=== PATIENT | male | born 1970 | race Caucasian/White ===

== ENCOUNTER → 2020-01-23 | Outpatient (CLI) | payer BC ==
[2020-01-23 12:55] LABS: HCT 43.6 % (39.0-53.0); HGB 14.7 gm/dL (13.0-17.5); MCH 33.8 pg (25.0-35.0); MCHC 33.6 g/dL (31.0-37.0); MCV 100.4 fL (80.0-100.0); Mean Platelet Volume 7.9; Platelet Count 319 k/uL (150-450); RBC 4.34 m/uL (4.30-5.90); RDW 13.2 % (11.5-15.5); WBC 7.9 k/uL (3.8-10.6)
[2020-01-23 13:26] LABS: Erythrocyte Sedimentation Rate 11 mm/hr (0-15)
[2020-01-23 19:55] LABS: Streptolysin O Ab(ASO) 72 IU/mL (0-200)
[2020-01-23 20:19] LABS: C Reactive Protein 0.5 mg/dL (0.0-0.8); Rheumatoid Factor, Qnt 4 IU/mL (0-15)
[2020-01-24 11:03] LABS: HLA B27 POSITIVE
== END | disposition home or self-care (01) ==
LOC: LABWHC1 10:55
PROVIDERS: ATTEND Orthopaedic Surgery
DX: M25.571 Pain in right ankle and joints of right foot (principal); S93.401D Sprain of unspecified ligament of right ankle, subsequent encounter; F17.210 Nicotine dependence, cigarettes, uncomplicated
CPT/HCPCS: 36415; 84443; 85027; 85652; 86038; 86060; 86140; 86431; 86618; 86812

== ENCOUNTER → 2023-08-06 | Outpatient (CLI) | payer BC ==
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
== END | disposition home or self-care (01) ==
LOC: RADXRMAIN 16:52
PROVIDERS: ATTEND Nurse Practitioner Family
DX: M25.511 Pain in right shoulder (principal); M25.512 Pain in left shoulder

== ENCOUNTER → 2023-08-06 | Outpatient (CLI) | payer BC ==
[2023-08-06 16:59] LABS: Basophils % (A) 0 %; Eosinophils # (A) 0.2 k/uL (0-0.7); Eosinophils % (A) 2 %; HCT 46.3 % (39.0-53.0); HGB 15.7 gm/dL (13.0-17.5); Lymphocytes # (A) 2.1 k/uL (1.0-4.8); Lymphocytes % (A) 26 %; MCH 35.6 pg (25.0-35.0); MCHC 33.9 g/dL (31.0-37.0); MCV 105.2 fL (80.0-100.0); Macrocytosis Slight; Mean Platelet Volume 7.7; Monocytes # (A) 0.5 k/uL (0-1.0); Monocytes % (A) 7 %; Neutrophils # (A) 5.2 k/uL (1.3-7.7); Neutrophils % (A) 64 %; Platelet Count 264 k/uL (150-450); RDW 13.1 % (11.5-15.5); WBC 8.1 k/uL (3.8-10.6)
[2023-08-06 17:05] LABS: ALT 38 U/L (4-49); AST 36 U/L (17-59); African American GFR (CKD) >90 (>60 ml/min/1.73 sqM); Albumin 4.4 g/dL (3.5-5.0); Albumin/Globulin Ratio 1.4; Alkaline Phosphatase 69 U/L (38-126); Anion Gap 8 mmol/L; Blood Urea Nitrogen 13 mg/dL (9-20); Calcium 9.9 mg/dL (8.4-10.2); Carbon Dioxide 26 mmol/L (22-30); Chloride 105 mmol/L (98-107); Globulin 3.1 g/dL; Glucose 92 mg/dL (74-99); Non-African American GFR(CKD) 88 (>60 ml/min/1.73 sqM); Potassium 4.7 mmol/L (3.5-5.1); Sodium 139 mmol/L (137-145); Total Bilirubin 0.7 mg/dL (0.2-1.3); Total Protein 7.5 g/dL (6.3-8.2)
[2023-08-06 17:22] LABS: T4, Free (Free Thyroxine) 0.75 ng/dL (0.78-2.19)
[2023-08-06 17:30] LABS: Troponin I <0.012 ng/mL (0.000-0.034)
[2023-08-06 17:47] LABS: Creatine Kinase MB 0.8 ng/mL (0.0-3.4)
== END | disposition home or self-care (01) ==
LOC: LABWHC1 16:05
PROVIDERS: ATTEND Nurse Practitioner Family
DX: D72.829 Elevated white blood cell count, unspecified (principal); R55 Syncope and collapse
CPT/HCPCS: 36415; 80053; 82553; 83036; 84439; 84443; 84484; 85025

== ENCOUNTER → 2023-08-20 | Outpatient (CLI) | payer BC ==
--- NOTE | 2023-08-20 11:35 | CA ---
Exercise Stress Test Report Name: Abhishek Rhodes Exam Date: 08/20/2023 08:59 Exam Location: [place] [facility] Ht (in): 68 Wt (lb): 170 BSA: 1.91 Ordering Phys: Mariusz Saldivar DO Referring Phys: Falguni Torres Technologist: Kulwinder Colmenares Age: 53 Gender: M : 1970 Procedure CPT: Indications: R55 SYNCOPE AND COLLAPSE ICD-10 Codes: Patient History: Medications: LISINOPRIL, ALPURINOL Meds past 24 hrs: Pretest Chest Pain: STRESS TEST Frantz Protocol Exercise Duration (min:sec): 12:[address] Depressions (mm): Angina Score: Garcia Score: Resting HR (bpm): 88 Peak HR (bpm): 147 Resting BP (mmHg): 130 / 99 Peak BP (mmHg): 207 / 99 MPHR: 169 Target HR: 144 % MPHR: 87 METS: 12.1 Total Dose: Peak Dose: Atropine: Double Product: 98732 BP Response: Stress Termination: Reached target heart rate Stress Symptoms: No chest pain or symptoms Stress Summary: ECG ANALYSIS Resting ECG: Normal sinus rhythm normal axis normal intervals Stress ECG: Patient exercised on Frantz protocol for 12 minutes achieving 85% of maximal heart rate without chest pain or diagnostic ST segment depression CONCLUSIONS Excellent exercise tolerance Negative stress test by EKG criteria Dr. Bakari Gay MD (Electronically Signed) Final Date: 20 August 2023 11:34
== END | disposition home or self-care (01) ==
LOC: RADNMMAIN 08:36
PROVIDERS: ATTEND Family Medicine
DX: R55 Syncope and collapse (principal)
CPT/HCPCS: 93017

== ENCOUNTER → 2023-08-21 | Outpatient (CLI) | payer BC ==
--- NOTE | 2023-08-24 09:26 | CT ---
EXAMINATION TYPE: CT soft tissue neck wo con DATE OF EXAM: 08/21/2023 HISTORY: Thyroid nodule left side. COMPARISON: None CT DLP: 334.8 mGycm. Automated Exposure Control for Dose Reduction was Utilized. TECHNIQUE: CT scan of the neck is performed without and with IV Contrast, , coronal and sagittal ref ormatted images are reviewed. FINDINGS: Lack of contrast severely limits the exam for assessment of adenopathy. Airway: No gross abnormality seen. Parotid/submandibular glands: No gross abnormality seen. Carotid/Vascular Structures: No significant atherosclerotic changes noted. Osseous Structures: Hypertrophic and degenerative changes of the spine severe changes C5-C6. There is posterior spondylosis and retrolisthesis. Other: Emphysematous changes involving the lung apices with biapical subpleural scarring or thickenin g. Subpleural nodularity has a benign appearance. Near the angle of the mandible on axial image 47 there is a 2 cm low-density structure. Recommend ult rasound follow-up given the lack of IV contrast. Measures approximately 18 Hounsfield units. There ar e bilateral scattered soft tissue nodules in the compartments of the neck with the 1 cm borderline ar ea of adenopathy in the right carotid space axial image 38. Additional nodules are seen with referenc e to 1 cm nodule in the right submental space axial image 39. There is asymmetric prominence of the posterior right base of the tongue and oral mucosa for which di rect visualization is recommended to exclude mucosal lesion. IMPRESSION: 1. Exam is significantly limited due to lack of contrast. 2. Asymmetric mucosal thickening along the right oropharynx and base of the tongue for which ENT cons ultation recommended. 3. Scattered areas of borderline adenopathy throughout the compartments of the neck. Additionally, th ere is a 2 cm cystic lesion in the left neck near the angle the mandible for which ultrasound is bob mmended.
== END | disposition home or self-care (01) ==
LOC: RADCTMAIN 15:29
PROVIDERS: ATTEND Family Medicine
DX: E04.1 Nontoxic single thyroid nodule (principal); K13.29 Other disturbances of oral epithelium, including tongue; R59.0 Localized enlarged lymph nodes
CPT/HCPCS: 70490

== ENCOUNTER → 2023-09-02 | Outpatient (CLI) | payer BC ==
--- NOTE | 2023-09-02 18:48 | US ---
EXAMINATION TYPE: US thyroid st tissue head/neck DATE OF EXAM: 09/02/2023 COMPARISON: CT 08/21/2023- cystic lesion left neck near the mandible. 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 Technique: Ultrasound imaging of the right submandibular region. Greyscale and color Doppler imaging was performed. FINDINGS: Two solid, hypoechoic areas with calcifications seen right submandibular area. #1 area measures: 1.3 x 1.1 x 1.0 cm. #2 area measures: 2.4 x 1.8 x 1.2 cm. Anechoic area with solid border seen left submandibular area: 3.2 x 3.2 x 1.8 cm. IMPRESSION: Indeterminate right neck lymph nodes and Cystic lymph node in the left neck. If not already evaluated for oral pharyngeal squamous cell carcinoma further workup should be performed. Direct visualization of the mucosa is recommended. PET/CT could be performed for metabolic activity.
== END | disposition home or self-care (01) ==
LOC: RADUSWWP 16:29
PROVIDERS: ATTEND Family Medicine
DX: M26.09 Other specified anomalies of jaw size (principal)
CPT/HCPCS: 76536

== ENCOUNTER 2024-01-01 08:06 | Day surgery (SDC) | payer BC ==
[2024-01-01 09:21] VITALS: PULSE 84; RESP 18; TEMP 98
--- NOTE | 2024-01-01 12:41 | US ---
EXAMINATION TYPE: US biopsy lymph node left neck US biopsy lymph node right neck DATE OF EXAM: 01/01/2024 9:35 AM CLINICAL INDICATION:Male, 53 years old with history of R59.0 LOCALIZED ENLARGED LYMPH NODES; , thyroi d nodule. COMPARISON: CT 08/21/2023 ATTENDING: Dr. Gennaro [place] PROCEDURE: Informed consent was obtained. The risks and benefits of the procedure were discussed with the patien t. The site was marked. Timeout procedure was performed Ultrasound imaging of the bilateral neck demonstrate enlarged lymph nodes. The patient was prepped, draped in the usual sterile fashion, and locally anesthetized with 1% lidoca ine. Attention was directed towards the left neck cystic mass with aspiration and 3 18-gauge core samples taken. Samples were sent to the pathology department for further analysis. Patient tolerated the procedure without incident and was sent home in stable condition. Attention was directed towards the right neck enlarged lymph node with 2 18-gauge core samples taken. Samples were sent to the pathology department for further analysis. Patient tolerated the procedure without incident and was sent home in stable condition. IMPRESSION: Successful ultrasound guided bilateral neck lymph node biopsy.
[2024-01-01 15:07] VITALS: BP 142/80
--- NOTE | 2024-01-02 11:46 | US ---
Please see [id number]
== END 2024-01-01 09:50 | disposition home or self-care (01) ==
LOC: RADPROMAIN 08:06
PROVIDERS: ATTEND Otolaryngology
DX: C77.0 Secondary and unspecified malignant neoplasm of lymph nodes of head, face and neck (principal)
CPT/HCPCS: 38505; 76942; 88173; 88305; 88341; 88342

== ENCOUNTER → 2024-02-24 | Outpatient (CLI) | payer BC ==
--- NOTE | 2024-02-25 13:27 | US ---
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 IMPRESSION: 1. Moderate left hydronephrosis with a 7 mm left renal calculus
== END | disposition home or self-care (01) ==
LOC: RADUSWWP 15:18
PROVIDERS: ATTEND Internal Medicine Hematology & Oncology
DX: C09.0 Malignant neoplasm of tonsillar fossa (principal); N13.30 Unspecified hydronephrosis; I10 Essential (primary) hypertension; N20.0 Calculus of kidney
CPT/HCPCS: 76770

== ENCOUNTER → 2024-03-04 | Outpatient (CLI) | payer BC ==
--- NOTE | 2024-03-04 11:36 | US ---
EXAMINATION TYPE: US venous doppler duplex UE LT DATE OF EXAM: 03/04/2024 COMPARISON: NONE CLINICAL INDICATION: Male, 53 years old with history of R22.32 LOCALIZED SWELLING, MASS AND LUMP, LEF T UPP; Swelling in left arm after IV 2 days ago. No hx of DVT. SIDE PERFORMED: Left Left Arm: Barley Steeper notes: Internal echoes and lack of color flow seen within left cephalic vein from upper arm down to the elbow level. Cephalic vein does not compress at these levels. Cephalic v ein shows color flow and compressibility within forearm. No evidence of DVT. IMPRESSION: 1. No evidence for DVT within the left upper extremity. 2. However, there is extensive SVT throughout the cephalic vein.
== END | disposition home or self-care (01) ==
LOC: RADUSWWP 10:42
PROVIDERS: ATTEND Internal Medicine Hematology & Oncology
DX: I47.10 Supraventricular tachycardia, unspecified (principal); R22.32 Localized swelling, mass and lump, left upper limb

== ENCOUNTER → 2024-05-25 | Outpatient (CLI) | payer BC ==
--- NOTE | 2024-05-25 09:53 | CT ---
EXAMINATION TYPE: CT urogram wo/w con CT DLP: 1479 mGycm, Automated exposure control for dose reduction was used. DATE OF EXAM: 05/25/2024 8:52 AM COMPARISON: None CLINICAL INDICATION:Male, 53 years old with history of N20.0 CALCULUS OF KIDNEY; PHH, left sided kidn ey stones TECHNIQUE: Urogram with imaging of the abdomen and pelvis. Coronal and sagittal reformats were performed. 2D and 3D reconstructions are performed to assist visualization of the urinary tract on a separate workstat ion. Contrast used:100 mL of Isovue 300 with IV Contrast, Oral contrast used: None. FINDINGS: LOWER CHEST: No significant findings. GENITOURINARY: RIGHT KIDNEY AND URETER: Calculi measuring up to 2 mm.. No hydronephrosis or hydroureter. No renal ma ss or other lesions. No urothelial lesions: no filling defect, dilation, stricture or wall thickening . LEFT KIDNEY AND URETER: Multiple renal calculi measuring up tor 1.3 x 0.4 cm. Left extrarenal pelvis Dilation of the calyces. No hydronephrosis or hydroureter. No renal mass or other lesions. No urothel ial lesions: no filling defect, dilation, stricture or wall thickening. URINARY BLADDER: Limited evaluation secondary to partial filling of the bladder with excreted IV cont rast. No calculi or obvious mass. REPRODUCTIVE: Prostate is enlarged in size measuring 4.9 cm in transverse dimension. ABDOMEN LIVER: Diffusely hypoattenuating, consistent with hepatic steatosis.. GALLBLADDER AND BILE DUCTS: Unremarkable PANCREAS: Unremarkable. SPLEEN: Unremarkable. ADRENAL GLANDS: Unremarkable. STOMACH AND BOWEL: . No evidence of bowel obstruction. PERITONEUM: No evidence of pneumoperitoneum, free fluid, or adenopathy. VASCULATURE: No evidence of aortic aneurysm. MUSCULOSKELETAL: No acute osseous abnormalities LYMPH NODES: No gross evidence for lymphadenopathy. SOFT TISSUE/ABDOMINAL WALL: Unremarkable IMPRESSION: 1. No evidence of renal/urothelial neoplasm. 2. Bilateral nonobstructing renal calculi. 3. Pelvocaliectasis of the left collecting system. 4. Prostatomegaly correlate with serum PSA.
== END | disposition home or self-care (01) ==
LOC: RADCTMAIN 08:02
PROVIDERS: ATTEND Urology
DX: N13.2 Hydronephrosis with renal and ureteral calculous obstruction (principal); N40.0 Benign prostatic hyperplasia without lower urinary tract symptoms
CPT/HCPCS: 74178; 74400; Q9967

== ENCOUNTER → 2024-07-19 | Outpatient (CLI) | payer BC ==
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
== END | disposition home or self-care (01) ==
LOC: RADMRIMAIN 06:52
PROVIDERS: ATTEND Family Medicine
DX: M50.30 Other cervical disc degeneration, unspecified cervical region (principal); M47.812 Spondylosis without myelopathy or radiculopathy, cervical region; M99.71 Connective tissue and disc stenosis of intervertebral foramina of cervical region; M43.12 Spondylolisthesis, cervical region; M79.2 Neuralgia and neuritis, unspecified; R42 Dizziness and giddiness
CPT/HCPCS: 70553; 72156

== ENCOUNTER → 2024-08-09 | Outpatient (CLI) | payer BC ==
--- NOTE | 2024-08-10 07:30 | CA ---
Transthoracic Echo Report Name: Abhishek Rhodes Age: 54 Gender: M : 1970 Exam Date: 08/09/2024 11:35 Exam Location: [place] [facility] Ht (in): 68 Wt (lb): 112 Ordering Physician: Mariusz Saldivar DO Attending/Referring Phys: Falguni Torres [facility] Concrete Analyst Lindsey Barba RDCS Procedure CPT: Indications: R55 SYNCOPE AND COLLAPSE Cardiac Hx: Technical Quality: Fair Contrast 1: Total Dose (mL): Contrast 2: Total Dose (mL): MEASUREMENTS (Male / Female) Normal Values 2D ECHO LV Diastolic Diameter PLAX 3.9 cm 4.2 - 5.9 / 3.9 - 5.3 cm LV Systolic Diameter PLAX 2.5 cm IVS Diastolic Thickness 0.8 cm 0.6 - 1.0 / 0.6 - 0.9 cm LVPW Diastolic Thickness 1.1 cm 0.6 - 1.0 / 0.6 - 0.9 cm LV Relative Wall Thickness 0.5 RV Internal Dim ED PLAX 3.8 cm LA Volume 29.1 cm??? 18 - 58 / 22 - 52 cm??? LA Volume Index 18.8 cm???/m??? 16 - 28 cm???/m??? M-MODE Aortic Root Diameter MM 3.1 cm LA Systolic Diameter MM 2.9 cm LA Ao Ratio MM 0.9 AV Cusp Separation MM 1.7 cm DOPPLER AV Peak Velocity 95.3 cm/s AV Peak Gradient 3.6 mmHg AV Mean Velocity 70.1 cm/s AV Mean Gradient 2.2 mmHg AV Velocity Time Integral 16.5 cm LVOT Peak Velocity 77.1 cm/s LVOT Peak Gradient 2.4 mmHg LVOT Velocity Time Integral 12.1 cm MV Area PHT 3.6 cm??? Mitral E Point Velocity 62.3 cm/s Mitral A Point Velocity 57.9 cm/s Mitral E to A Ratio 1.1 MV Deceleration Time 209.7 ms MV E' Velocity 8.0 cm/s Mitral E to MV E' Ratio 7.8 TR Peak Velocity 219.2 cm/s TR Peak Gradient 19.2 mmHg Right Ventricular Systolic Press 24.2 mmHg FINDINGS Left Ventricle Normal left ventricular size, wall thickness, systolic function with no obvious regional wall motion abnormalities. Normal left ventricular diastolic filling pattern for age. The ejection fraction is visually estimated at 55-60 %. Right Ventricle The right ventricle is mildly dilatated with normal function . Right ventricular systolic pressure within normal limits. Right Atrium The right atrium is normal in size. Left Atrium The left atrium is normal in size. Mitral Valve Structurally normal mitral valve without significant stenosis or prolapse. There is no mitral regurgitation. Aortic Valve Structurally normal aortic valve without significant sclerosis or stenosis. There is no aortic regurgitation. Tricuspid Valve Structurally normal tricuspid valve without significant stenosis. Pulmonary artery systolic pressure is normal. Mild tricuspid regurgitation. Pulmonic Valve Structurally normal pulmonic valve without significant stenosis. There is no pulmonic regurgitation. Pericardium Normal pericardium without effusion. Aorta Normal aortic root dimension. CONCLUSIONS Normal biventricular systolic function No significant valvular abnormalities noted Normal pulmonary artery systolic pressure No pericardial effusion Previewed by: Dr. Jesus Gates MD (Electronically Signed) Final Date: 10 August 2024 07:30
== END | disposition home or self-care (01) ==
LOC: RADECHMAIN 11:28
PROVIDERS: ATTEND Family Medicine
DX: R55 Syncope and collapse (principal)
CPT/HCPCS: 93306

== ENCOUNTER → 2024-08-16 | Outpatient (CLI) | payer BC ==
--- NOTE | 2024-09-06 03:02 | EM ---
EVENT MONITOR This is a seven-day event monitor. Available rhythm strips were reviewed. No symptoms are reported. Predominant rhythm appears to be sinus. No other significant arrhythmia noted. This is an unremarkable seven-day event monitor with sinus rhythm and no symptoms. MMODL / IJN: [id number] /
== END | disposition home or self-care (01) ==
LOC: RADECHMAIN 07:41
PROVIDERS: ATTEND Family Medicine
DX: R55 Syncope and collapse (principal)
CPT/HCPCS: 93270

== ENCOUNTER → 2024-09-08 | Outpatient (CLI) | payer BC ==
[2024-09-08 08:55] VITALS: BP 118/69; PULSE 102; RESP 16
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
== END ==
LOC: PNWHC3 08:14
PROVIDERS: ATTEND Specialist
DX: M47.22 Other spondylosis with radiculopathy, cervical region (principal); Z91.030 Bee allergy status; Z88.0 Allergy status to penicillin
CPT/HCPCS: 99211

== ENCOUNTER 2024-10-21 07:00 | Day surgery (SDC) | payer BC ==
[2024-10-21 07:35] VITALS: RESP 16; TEMP 97.3
[2024-10-21] MEDS ORDERED: IOPAMIDOL M200 10 ML VIAL ONE (07:49)
[2024-10-21] MEDS ORDERED: DEXAMETHASONE SOD PHOSPHATE 10 MG/ML 1 ML VIAL ONE (07:49)
--- NOTE | 2024-10-21 07:57 | P.PCN ---
Date of Procedure: 10/21/24 Procedure(s) Performed: . PROCEDURE 1. Cervical epidural steroid injection under fluoroscopic guidance, C6-7 (fluoroscopy images available in the radiology department ) 2. Cervical epidurogram. PREOPERATIVE DIAGNOSIS: 1- Cervical Degenerative Disc Diseases 2- Cervical radiculopathy., 3-cervical spondylosis with cervical Facet arthropathy without myelopathy. POSTOPERATIVE DIAGNOSIS: : 1- Cervical Degenerative Disc Diseases , 2- Cervical radiculopathy. 3-,cervical spondylosis with cervical Facet arthropathy without myelopathy. ANESTHESIA: Local anesthesia with lidocaine 1% 3 ml only EBL 0 PROCEDURE INDICATION: The patient with neck pain and radiculitis unresponsive to conservative treatment consents for procedure. PROCEDURE DESCRIPTION / TECHNIQUE: The patient was seen and identified in the preoperative area. Risks, benefits, complications, including but not limited to infections ,bleeding , allergic reactions to the medications ,and not complete pain releife, and alternatives were discussed with the patient, the patient agreed to proceed with the procedure and signed the consent. Patient was taken to the OR and time out was completed. The patient was placed in the prone position on the procedure table. A pillow was placed under the patients chest to increase the cervical interlaminar space. The cervical area was prepped and draped in the usual sterile fashion. Vital signs were closely monitored during the procedure. Using anterior-posterior fluoroscopy, the C6-7 interlaminar space was identified and the skin over this site was marked and then infiltrated with 1% lidocaine subcutaneously. Subsequently, a 20-gauge 3-1/2-inch Tuohy epidural needle was inserted and advanced toward the epidural space by means of the ``hanging-drop technique and guided by AP and lateral fluoroscopy. The correct needle position in the epidural space was verified with the injection of 2 mL of the water soluble contrast dye Isovue-200 and observing an excellent epidurogram with the epidural spread of the dye, after negative aspiration for blood and CSF and in the absence of paresthesias. then, mixture containing 20 mg Dexamethasone and 2 ml of preservative-free normal saline injected and a washout of epidurogram was seen. Needle was withdrawn intact, skin was cleansed, and bandages were applied. Complications= none. Disposition= patient was placed in supine position and transferred to the recovery room area in stable condition and there was no evidence of upper or lower extremity motor or sensory deficit after the procedure patient was discharged from recovery room after discharge criteria met and home discharge instructions was given by the staff and patient will follow with the pain clinic in 2-4 weeks Last dose of Eliquis more than 3 days ago. Last dose of pentoxifylline more than few weeks ago
[2024-10-21] MEDS ORDERED: LACTATED RINGERS 1,000 ML IV SCH (08:06)
[2024-10-21 08:18] VITALS: BP 133/83; PULSE 80
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
== END 2024-10-21 08:28 | disposition home or self-care (01) ==
LOC: ORPAIN 07:00
PROVIDERS: ATTEND Specialist
DX: M47.22 Other spondylosis with radiculopathy, cervical region (principal); Z88.0 Allergy status to penicillin; Z91.030 Bee allergy status
CPT/HCPCS: 62321; J1100; Q9966

== ENCOUNTER → 2025-05-03 | Outpatient (CLI) | payer BC ==
--- NOTE | 2025-05-03 18:16 | XR ---
EXAMINATION TYPE: XR ribs LT w pa chest xray DATE OF EXAM: 05/03/2025 5:08 PM COMPARISON: None CLINICAL INDICATION: Male, 54 years old with history of R07.81 PLEURODYNIA; PHH, pain TECHNIQUE: XR ribs LT w pa chest xray; Frontal and oblique views of the ribs with frontal chest radio graph. FINDINGS: The ribs have a normal appearance. No evidence of fracture. Overall, the lungs are clear. The cardiac silhouette is normal in size. The remaining osseous structures are intact. Left renal c alculi measuring up to 7 mm. IMPRESSION: No acute osseous pathology. [facility], , 05/03/2025 6:14 PM
== END | disposition home or self-care (01) ==
LOC: RADXRMAIN 16:41
PROVIDERS: ATTEND Nurse Practitioner Family
DX: R07.81 Pleurodynia (principal)